=== PATIENT | female | born 1990 | race Caucasian/White ===

== ENCOUNTER 2022-01-15 15:42 | Outpatient (CLI) | payer SELFPAY | END 2022-01-15 15:43 | disposition EMS.NT | LOC: EMS 15:42 | DX: R42 Dizziness and giddiness (principal); R06.02 Shortness of breath ==

== ENCOUNTER 2022-04-21 17:50 | Outpatient (CLI) | payer OTHER, BC ==
--- NOTE | 2022-04-22 17:07 | XRAY Report ---
PROCEDURE: Foot 2 View RT INDICATIONS: CRUSHING INJURY OF RIGHT FOOT,INITIAL ENCOUNTER TECHNIQUE: 2 views of the foot were acquired. COMPARISON: None FINDINGS: Bones: No fractures or dislocations. No suspicious bony lesions. Soft tissues: No tibiotalar joint effusion. Achilles tendon appears normal. IMPRESSION: No visualized acute fracture or dislocation. However, occult injury cannot be excluded. Recommend fareed rt interval imaging follow-up in 7-10 days as clinically indicated for additional evaluation. Reviewed by: Rajni Albert MD on 04/22/2022 5:06 PM PST Approved by: Rajni Albert MD on 04/22/2022 5:06 PM PST Station ID: [id number]
== END 2022-04-21 17:51 | disposition home or self-care (01) ==
LOC: DI 17:50
PROVIDERS: ATTEND Nurse Practitioner
DX: S97.81XA Crushing injury of right foot, initial encounter (principal)

== ENCOUNTER 2022-08-26 16:45 | Outpatient (CLI) | payer OTHER ==
--- NOTE | 2022-08-26 12:35 | XRAY Report ---
PROCEDURE: Foot 3 View RT INDICATIONS: RIGHT GREAT TO FRACTURE/FOOT PAIN TECHNIQUE: 3 views of the foot were acquired. COMPARISON: 05/01/2022 FINDINGS: Bones: Previous distal tuft fracture has healed. No fractures or dislocations. No suspicious bony l esions. Soft tissues: No suspicious soft tissue calcifications or masses. IMPRESSION: Interval healing of distal tuft fracture. Reviewed by: Al Paz MD on 08/26/2022 12:34 PM PDT Approved by: Al Paz MD on 08/26/2022 12:34 PM PDT Station ID: [id number]
== END 2022-08-26 16:46 | disposition home or self-care (01) ==
LOC: DI.WOS 16:45
PROVIDERS: ATTEND Physician Assistant Surgical
DX: S92.424D Nondisplaced fracture of distal phalanx of right great toe, subsequent encounter for fracture with routine healing (principal)

== ENCOUNTER 2024-07-15 11:58 | Observation (INO) ==
[2024-07-15 12:32] LABS: BASOPHILS # (AUTO) 0.1 10^3/uL (0.0-0.1); BASOPHILS % (AUTO) 0.7 %; EOSINOPHILS # (AUTO) 0.4 10^3/uL (0.0-0.7); EOSINOPHILS % (AUTO) 5.3 %; HGB - HEMOGLOBIN 13.3 g/dL (12.0-16.0); LYMPHOCYTES % (AUTO) 28.8 %; MEAN CORPUSCULAR HEMOGLOBIN 30.9 pg (27.0-31.0); MEAN CORPUSCULAR HGB CONC 33.3 g/dL (32.0-36.0); MEAN CORPUSCULAR VOLUME 92.8 fL (81.0-99.0); MEAN PLATELET VOLUME 9.1 fL (7.9-10.8); MONOCYTES # (AUTO) 0.5 10^3/uL (0.0-1.0); MONOCYTES % (AUTO) 6.8 %; NEUTROPHILS % (AUTO) 58.3 %; PLT - PLATELET COUNT 326 10^3/uL (130-450); RED BLOOD COUNT 4.31 10^6/uL (4.20-5.40); RED CELL DISTRIBUTION WIDTH 11.6 % (12.0-15.0); WHITE BLOOD COUNT 6.8 x10^3/uL (4.8-10.8)
[2024-07-15 12:46] LABS: ALBUMIN 4.8 g/dL (3.2-5.5); ALBUMIN/GLOBULIN RATIO 1.7 (1.0-2.2); BILIRUBIN,TOTAL 0.6 mg/dL (0.2-1.0); CALCIUM 9.5 mg/dL (8.5-10.3); CREATININE 0.8 mg/dL (0.6-1.3); POTASSIUM 4.4 mmol/L (3.5-4.5); TOTAL PROTEIN 7.6 g/dL (6.4-8.9)
--- OUTSIDE RECORDS SUMMARY | 2024-07-15 12:56 | EXTERNAL MEDICAL SUMMARY RPT | Continuity of Care Document ---
Author Organization [place] Address [address] [id number] Phone Results/Labs test date facility value unit notes Result panel 1 NUCLEATED RED BLOOD CELLS AUTO 2024-07-15 12:26 [facility] 0.0 /100wbc (missing) NRBC ABSOLUTE COUNT (AUTO) 2024-07-15 12: [facility] 0.00 x10 3/ul (missing) BASOPHILS # (AUTO) 2024-07-15 12:26 [facility] 0.1 10 3/ul (missing) EOSINOPHILS # (AUTO) 2024-07-15 12:26 [facility] 0.4 10 3/ul (missing) MONOCYTES # (AUTO) 2024-07-15 12:26 [facility] 0.5 10 3/ul (missing) BILIRUBIN,TOTAL 2024-07-15 12: [facility] 0.6 mg /dl As of October 2022 testing method has changed, this may include reference ranges. CREATININE 2024-07-15 12: [facility] 0.8 mg/dl As of October 2022 testing method has changed, this may include reference ranges. ALBUMIN/GLOBULIN RATIO 2024-07-15 12: [facility] 1.7 (missing) (missing) CHLORIDE 2024-07-15 12:26 [facility] 104 mmol/l As of October 2022 testing method has changed, this may include reference ranges. ALT ALANINE AMINOTRANSFERASE 2024-07-15 12: [facility] 11 iu/l As of October 2022 testing method has changed, this may include reference ranges. BUN - BLOOD UREA NITROGEN 2024-07-15 12:26 [facility] 11 mg/dl As of Oct testing method has changed, this may include reference ranges. RED CELL DISTRIBUTION WIDTH 2024-07-15 12: [facility] 11.6 % (missing) HGB - HEMOGLOBIN 2024-07-15 12:26 [facility] 13.3 g /dl (missing) SODIUM 2024-07-15 12:26 [facility] 137 mmol/l As of October 2022 testing method has changed, this may include reference ranges. AST ASPARTATE AMINOTRANSFERASE 2024-07-15 12: [facility] 16 iu/l As of October 2022 testing method has changed, this may include reference ranges. LYMPHOCYTES # (AUTO) 2024-07-15 12:26 [facility] 2.0 10 3/ul (missing) GLOBULIN 2024-07-15 12:26 [facility] 2.8 g/dl (missing) CARBON DIOXIDE - CO2 2024-07-15 12: [facility] 28 mmol/l As of October 2022 testing method has changed, this may include reference ranges. LIPASE 2024-07-15 12: [facility] 28 u/l As of October 2022 testing method has changed, this may include reference ranges. MEAN CORPUSCULAR HEMOGLOBIN 2024-07-15 12: [facility] 30.9 pg (missing) PLT - PLATELET COUNT 2024-07-15 12: [facility] 326 10 3/ul (missing) MEAN CORPUSCULAR HGB CONC 2024-07-15 12: [facility] 33.3 g/dl (missing) NEUTROPHILS # (AUTO) 2024-07-15 12: [facility] 4.0 10 3/ul (missing) RED BLOOD COUNT 2024-07-15 12: [facility] 4.31 10 6/ul (missing) POTASSIUM 2024-07-15 12: [facility] 4.4 mmol/l As of October 2022 testing method has changed, this may include reference ranges. ALBUMIN 2024-07-15 12: [facility] 4.8 g/dl As of October 2022 testing method has changed, this may include reference ranges. HCT - HEMATOCRIT 2024-07-15 12: [facility] 40.0 % (missing) ALKALINE PHOSPHATASE 2024-07-15 12: [facility] 43 iu/l As of October 2022 testing method has changed, this may include reference ranges. ANION GAP 2024-07-15 12:26 [facility] 5.0 (missing ) (missing) WHITE BLOOD COUNT 2024-07-15 12: [facility] 6.8 x10 3/ul (missing) TOTAL PROTEIN 2024-07-15 12:26 [facility] 7.6 g/dl As of October 2022 testing method has changed, this may include reference ranges. GFR - MDRD 2024-07-15 12:26 [facility] 83 (thelma herrera) Social History date description facility
[2024-07-15] MEDS: ONDANSETRON 4 MG/2 ML VIAL IVP STA (16:56)
[2024-07-15] MEDS: SODIUM CHLORIDE 0.9% 1,000 ML IV STA (16:57)
[2024-07-15] MEDS: MORPHINE 2 MG/ML CARPUJECT IVP STA (16:57)
--- NOTE | 2024-07-15 17:01 | ED Physician Documentation ---
PD HPI ABD PAIN Stated complaint Stated Complaint: ABD PX Chief complaint Chief Complaint: Abd Pain History obtained from History obtained from: Patient Additional information Additional information: Patient is a 33-year-old female who started with periumbilical abdominal pain today which is now moved to the right lower quadrant. She states that she last ate around 7 AM. Has not had similar symptoms previously. Nothing seems to make it better or worse. Has not had any fevers or chills. No vaginal bleeding or discharge. No diarrhea, constipation, urinary symptoms. Review of Systems Constitutional Denies: Fever or Chills Respiratory Denies: Cough Gastrointestinal Denies: Nausea or Vomiting Genitourinary Denies: Painful urination Meds/Allgy Allergies Allergies Allergy/AdvReac Type Severity Reaction Status Date / Time No Known Allergies Allergy Unknown Verified 07/15/24 16:40 PFSH Active Problems All Active Problems (Updated 07/15/24 @ 19:21 by Jeffrey Moralez MD) Appendicitis (Acute) Medical History Medical History (Updated 07/15/24 @ 19:21 by Jeffrey Moralez MD) No pertinent past medical history Surgical History Surgical History (Updated 07/15/24 @ 17:28 by Aubrie Ford RN) No pertinent past surgical history Social History Social History Relationship: Do you feel safe in your home environment?: Yes Suffered physical, verbal, emotional, or financial abuse?: No Exam Exam Vital Signs: Vital Signs x48h Temp Pulse Resp BP Pulse Ox 07/15/24 19:00 37 C 106 H 16 111/73 98 07/15/24 17:08 37 C 115 H 16 126/70 97 07/15/24 12:02 36.5 C 105 H 18 120/83 100 Constitutional normal general appearance and no apparent distress HENMT oropharynx normal moist mucous membranes Eyes PERRL Neck/C-Spine visual inspection normal Respiratory breath sounds equal bilaterally, normal respiratory effort and clear to ausculta tion bilaterally Cardiovascular normal heart rate noted and regular rhythm noted Gastrointestinal abdomen normal to inspection, abdomen soft to palpation and nondistended Tender to palpation right lower quadrant at McBurney's point. Positive Rovsing's and obturator signs. Positive heeltap Genitourinary no CVA tenderness Extremities no edema Neurology speech normal Psychiatry mental status grossly normal and oriented x3 Skin skin color normal Results Vitals Vitals: Vital Signs - 24 hr 07/15/24 12:02 07/15/24 16:57 07/15/24 17:08 Temperature 36.5 C 37 C Temperature Source Temporal Artery Scan Oral Pulse Rate 105 H 115 H Respiratory Rate 18 16 Blood Pressure 120/83 126/70 O2 Saturation 100 97 O2 Source Room air Room air Pain Intensity 6 6 3 07/15/24 19:00 Temperature 37 C Temperature Source Oral Pulse Rate 106 H Respiratory Rate 16 Blood Pressure 111/73 O2 Saturation 98 O2 Source Room air Pain Intensity Oxygen O2 Source Room air Labs Labs: Laboratory Tests 07/15/24 07/15/24 12:26 17:52 WBC 6.8 RBC 4.31 Hgb 13.3 Hct 40.0 MCV 92.8 MCH 30.9 MCHC 33.3 RDW 11.6 L Plt Count 326 MPV 9.1 Neut # (Auto) 4.0 Lymph # (Auto) 2.0 [place] # (Auto) 0.5 Eos # (Auto) 0.4 Baso # (Auto) 0.1 Absolute Nucleated RBC 0.00 Nucleated RBC % 0.0 Sodium 137 Potassium 4.4 Chloride 104 Carbon Dioxide 28 Anion Gap 5.0 L BUN 11 Creatinine 0.8 Estimated GFR (MDRD) 83 L Glucose 91 Calcium 9.5 Total Bilirubin 0.6 AST 16 ALT 11 Alkaline Phosphatase 43 Total Protein 7.6 Albumin 4.8 Globulin 2.8 Albumin/Globulin Ratio 1.7 Lipase 28 Serum HCG, Qual NEGATIVE Urine Color LIGHT YELLOW Urine Clarity CLEAR Urine pH 7.5 Ur Specific [place] 1.010 Urine Protein NEGATIVE Urine Glucose (UA) NEGATIVE Urine Ketones 15 H Urine Occult Blood NEGATIVE Urine Nitrite NEGATIVE Urine Bilirubin NEGATIVE Urine Urobilinogen 0.2 (NORMAL) Ur Leukocyte Esterase TRACE H Urine RBC None Seen Urine WBC 0-3 Ur Squamous Epith Cells MOD Squamous H Urine Bacteria Rare Ur Microscopic Review INDICATED Urine Culture Comments NOT INDICATED Urine HCG, Qual NEGATIVE Rads (name of study) CT abdomen pelvis: Relevant Findings:: EMP independent interpretation of test PD Medical Decision Making ED course Complexity details: reviewed results, considered differential and d/w patient ED course: 33-year-old female with periumbilical pain today that is now settled in the right lower quadrant. Tenderness at McBurney's point. No significant lab abnormalities. hCG is negative. There however she is having the CT scan read by radiology, given her exam consistent with appendicitis and my interpretation of what appears to be a dilated fluid-filled appendix, approximately 11 mm in the right lower quadrant with some mild fluid around the tip of the cecum, this would be consistent with acute appendicitis. The fluid does not appear to be connected in any way to the ovary, do not suspect ovarian rupture or ovarian origin of that fluid. Therefore I contacted Dr. Alexander, general surgery on- call who will come and evaluate the patient, will plan on him taking her to the OR for acute appendicitis. Zosyn started. Patient NPO. IV fluids given. Pain well-controlled. This document was made in part using voice recognition software. While efforts are made to proofread this document, sound alike and grammatical errors may occur. Discharge Plan Discharge Patient Disposition: ED Transfer to [facility] Condition: Stable Clinical Impression: Appendicitis Qualifiers: Appendicitis type: acute appendicitis Acute appendicitis type: unspecified acute appendicitis type Qualified Code(s): K35.80 - Unspecified acute appendicitis Print Language: Greek Stand Alone Forms: PCP List
[2024-07-15 17:13] LABS: HCG,QUALITATIVE BLOOD NEGATIVE
[2024-07-15] MEDS ORDERED: iohexoL-300 100 ML VIAL ONE (17:23)
[2024-07-15] MEDS: iohexoL-300 100 ML VIAL IVP ONE (17:49)
[2024-07-15 18:00] LABS: BILIRUBIN,URINE NEGATIVE (NEGATIVE); GLUCOSE, URINE (UA) NEGATIVE (NEGATIVE); KETONES,URINE (UA) 15 mg/dL (NEGATIVE); LEUKOCYTE ESTERASE, URINE TRACE (NEGATIVE); NITRITE,URINE NEGATIVE (NEGATIVE); OCCULT BLOOD,URINE NEGATIVE (NEGATIVE); PH,URINE 7.5 PH (5.0-7.5); PROTEIN,URINE NEGATIVE (NEGATIVE); UROBILINOGEN,URINE 0.2 (NORMAL) E.U./dL (NORMAL)
[2024-07-15 18:14] LABS: CLARITY,URINE CLEAR (CLEAR); HCG UR QUAL NEGATIVE
[2024-07-15 18:38] LABS: BACTERIA,URINE Rare /HPF (None Seen); RBC,URINE None Seen /HPF (0-5); SQUAMOUS EPITHELIAL CELL,UR MOD Squamous (<= Few); WBC,URINE 0-3 /HPF (0-5)
[2024-07-15] MEDS: PIPERACILLIN/TAZOBACTAM 3.375 GM in SODIUM CHLORIDE 0.9% MINIBAG 100 ML IV STA (19:42)
--- NOTE | 2024-07-15 19:51 | HISTORY & PHYSICAL EXAMINATION ---
Chief Complaint Chief Complaint Chief Complaint: Abdominal pain History of Present Illness Admitted From Admitted From:: ED History Obtained From History obtained from: Patient Exam Limitations: None History of Present Illness HPI Comment/Other: 33 female with sudden onset of mid-hypogastric pain at 1100 today. The pain is sharp and constant. She had transient nausea but no vomiting. She came to the ED at noon and her pain seemed to move a bit to the right. She tells me it hurts to move. She also tells me that she is hungry. She denies constipation and has never had similar abdominal pain. She denies fevers or chills. She denies prior abdominal surgery. LMP about 3 weeks ago. Meds/Allgy Allergies Allergies Allergy/AdvReac Type Severity Reaction Status Date / Time No Known Allergies Allergy Unknown Verified 07/15/24 16:40 PFSH Active Problems All Active Problems (Updated 07/15/24 @ 19:21 by Jeffrey Moralez MD) Appendicitis (Acute) Medical History Medical History (Updated 07/15/24 @ 19:21 by Jeffrey Moralez MD) No pertinent past medical history Surgical History Surgical History (Updated 07/15/24 @ 17:28 by Aubrie Ford RN) No pertinent past surgical history Family History Family History (Updated 07/15/24 @ 19:48 by Ciaran Alexander MD) Other CAD (coronary artery disease) CVA (cerebral vascular accident) Diabetes Social History Social History Relationship: Do you feel safe in your home environment?: Yes Suffered physical, verbal, emotional, or financial abuse?: No Review of Systems Status of ROS: 10 or more systems reviewed and unremarkable except as noted in history and below Prior Level of Functionality: Independent Exam Exam Vital Signs: Vital Signs x48h Temp Pulse Resp BP Pulse Ox 07/15/24 19:00 37 C 106 H 16 111/73 98 07/15/24 17:08 37 C 115 H 16 126/70 97 Constitutional normal general appearance, no apparent distress and average body habitus HENMT normocephalic, head/scalp atraumatic and hearing grossly normal bilaterally Eyes PERRL, EOMs intact bilaterally, conjunctivae normal and no scleral icterus Neck/C-Spine visual inspection normal and trachea midline Lymph no lymphadenopathy noted Respiratory breath sounds equal bilaterally, normal respiratory effort and clear to auscultation bilaterally Cardiovascular normal heart rate noted, regular rhythm noted and no murmur Gastrointestinal abdomen normal to inspection, abdomen soft to palpation, nontender to palpation, nontender to percussion, nondistended, normoactive bowel sounds and no masses Genitourinary no CVA tenderness Back/Pelvis spine normal to inspection Extremities normal to inspection Neurology no sensory deficits noted Psychiatry mental status grossly normal, oriented x3, thought process normal, cooperative and affect normal Skin skin color normal Conclusion/Plan Problem List (1) Appendicitis: Qualifiers: Acute appendicitis type: unspecified acute appendicitis type A ppendicitis type: acute appendicitis Qualified Code(s): K35.80 - Unspecified acute appendicitis Plan 1) NPO 2) Laparoscopic appendectomy, possible open appendectomy under GETA. The patient will be admitted to observation with the intent to support her overnight with plans for discharge tomorrow morning. Consent: Sharon has been counseled for the procedure (Laparoscopic appendectomy, possible open appendectomy under GETA), it's indications, risks, benefits and expected outcome as well as alternative therapies. We specifically discussed risks associated with anesthesia, bleeding, infection, injury to surrounding structures which may require additional surgery, and the possible need for conversion to an open procedure. We also discussed the possible need for a blood transfusion with its risks and benefits. Sharon understands, agrees, and consents to the proposed operative strategy and requests that we proceed with the procedure as outlined in our discussion. Ciaran Alexander MD, [facility] General Surgery Service Lab Results Lab results reviewed: Yes 07/15/24 12:26 07/15/24 12:26 Diagnostic Imaging Results Diagnostic Imaging Results: positive See rad report Diagnostic Imaging Results Comments: CT abd/pelvis - my read -> Large stool burden right colon. Air within what appears to be an appendix in the RLQ. Official reading - dilated tubular structure in RLQ c/w acute appendicitis
--- NOTE | 2024-07-15 19:57 | CT Report ---
PROCEDURE: CT Abdomen/Pelvis W INDICATIONS: RLQ pain CONTRAST: omni 300, 100 TECHNIQUE: After the administration of intravenous contrast, a CT scan of the abdomen and pelvis was performed. Images were recorded and evaluated at appropriate window settings. Reformats: coronal and sagittal. F or radiation dose reduction, the following was used: automated exposure control, adjustment of mA and /or kV according to patient size. COMPARISON: None. FINDINGS: Image quality: Diagnostic. Lower chest: Unremarkable. Liver: No solid mass. Gallbladder: No radiopaque stones or wall thickening. Biliary tree: No intrahepatic or extrahepatic dilation, accounting for age. Spleen: No splenomegaly. Pancreas: No pancreatic ductal dilation. Adrenals: No adrenal nodule. Kidneys and ureters: No hydronephrosis. No renal cystic lesion which requires follow up. No solid mas s. Stomach, bowel and peritoneum: No gastric or small bowel dilation. No abnormal wall thickening. No pa thologic free fluid. There appears to be dilated fluid-filled tubular structure within the right lowe r quadrant with wall thickening measuring approximately 1.2 cm (series 2 image 97). There is small ad jacent free fluid within the right lower quadrant. Lymph nodes: No central or retroperitoneal adenopathy. Vessels: No infrarenal aortic aneurysm. Patent portal vein. PELVIS Reproductive organs: Intrauterine device in place. Bladder: No abnormal wall thickening. Pelvic lymph nodes: No pelvic adenopathy by size criteria. Small free fluid within the pelvis. Bones: No aggressive osseous abnormality. Other: No significant ventral or inguinal hernia. IMPRESSION: Dilated tubular structure within the right lower quadrant measuring 12 mm with wall thickening and sm all adjacent free fluid, concerning for acute appendicitis. Reviewed by: Stephane Chun MD on 07/15/2024 7:56 PM PDT Approved by: Stephane Chun MD on 07/15/2024 7:56 PM PDT Station ID: [id number]
--- NOTE | 2024-07-15 20:00 | HISTORY & PHYSICAL EXAMINATION ---
History of Present Illness History of Present Illness HPI Comment/Other: 33 female with sudden onset of mid-hypogastric pain at 1100 today. The pain is sharp and constant. She had transient nausea but no vomiting. She came to the ED at noon and her pain seemed to move a bit to the right. She tells me it hurts to move. She also tells me that she is hungry. She denies constipation and has never had similar abdominal pain. She denies fevers or chills. She denies prior abdominal surgery. LMP about 3 weeks ago. Meds/Allgy Allergies Allergies Allergy/AdvReac Type Severity Reaction Status Date / Time No Known Allergies Allergy Unknown Verified 07/15/24 16:40 PFSH Active Problems All Active Problems (Updated 07/15/24 @ 19:21 by Jeffrey Moralez MD) Appendicitis (Acute) Medical History Medical History (Updated 07/15/24 @ 19:21 by Jeffrey Moralez MD) No pertinent past medical history Surgical History Surgical History (Updated 07/15/24 @ 17:28 by Aubrie Ford RN) No pertinent past surgical history Family History Family History (Updated 07/15/24 @ 19:48 by Ciaran Alexander MD) Other CAD (coronary artery disease) CVA (cerebral vascular accident) Diabetes Social History Social History Relationship: Do you feel safe in your home environment?: Yes Suffered physical, verbal, emotional, or financial abuse?: No Review of Systems Status of ROS: 10 or more systems reviewed and unremarkable except as noted in history and below Exam Exam Vital Signs: Vital Signs x48h Temp Pulse Resp BP Pulse Ox 07/15/24 19:00 37 C 106 H 16 111/73 98 07/15/24 17:08 37 C 115 H 16 126/70 97 07/15/24 12:02 36.5 C 105 H 18 120/83 100 Constitutional normal general appearance, no apparent distress and average body habitus HENMT normocephalic, head/scalp atraumatic and hearing grossly normal bilaterally Eyes PERRL, EOMs intact bilaterally, conjunctivae normal and no scleral icterus Neck/C-Spine visual inspection normal and trachea midline Lymph no lymphadenopathy noted Respiratory breath sounds equal bilaterally, normal respiratory effort and clear to auscultation bilaterally Cardiovascular normal heart rate noted, regular rhythm noted and no murmur Gastrointestinal abdomen normal to inspection, abdomen soft to palpation, nontender to palpation, nontender to percussion, nondistended, normoactive bowel sounds and no masses Genitourinary no CVA tenderness Back/Pelvis spine normal to inspection Extremities normal to inspection Neurology no sensory deficits noted Psychiatry mental status grossly normal, oriented x3, thought process normal, cooperative and affect normal Skin skin color normal Conclusion/Plan Lab Results Lab results reviewed: Yes 07/15/24 12:26 07/15/24 12:26
[2024-07-15] MEDS: LACTATED RINGERS 1,000 ML IV SCH (22:01)
[2024-07-15] MEDS ORDERED: BUPIVACAINE 0.5% PF 10 ML VIAL ONE (22:44)
[2024-07-15] MEDS ORDERED: LIDOCAINE 1%-EPI 1:100000 20 ML MDV ONE (22:45)
[2024-07-15] MEDS ORDERED: PROPOFOL 200 MG/20 ML VIAL IVP ONE (23:21)
[2024-07-15] MEDS ORDERED: fentaNYL 100 MCG/2 ML VIAL ONE (23:21)
[2024-07-15] MEDS ORDERED: MIDAZOLAM 2 MG/2 ML VIAL ONE (23:21)
[2024-07-15] MEDS ORDERED: ROCURONIUM 50 MG/5 ML VIAL ONE (23:22)
[2024-07-16] MEDS ORDERED: DEXAMETHASONE 4 MG/ML VIAL ONE (00:04)
[2024-07-16] MEDS ORDERED: ONDANSETRON 4 MG/2 ML VIAL ONE ×3 (00:04→01:01)
[2024-07-16] MEDS ORDERED: METOCLOPRAMIDE 10 MG/2 ML VIAL IVP PRN (00:19)
[2024-07-16] MEDS ORDERED: MORPHINE 2 MG/ML CARPUJECT IVP PRN (00:19)
[2024-07-16] MEDS ORDERED: ATROPINE ABBOJECT 1 MG/10 ML SYRINGE IVP PRN (00:19)
[2024-07-16] MEDS ORDERED: fentaNYL 100 MCG/2 ML VIAL IVP PRN (00:19)
[2024-07-16] MEDS ORDERED: ePHEDrine 50 MG/ML VIAL IVP PRN (00:19)
[2024-07-16] MEDS ORDERED: NALOXONE 0.4 MG/ML VIAL IVP PRN (00:19)
[2024-07-16] MEDS ORDERED: SUGAMMADEX 200 MG/2 ML VIAL IVP ONE (00:21)
[2024-07-16] MEDS ORDERED: KETOROLAC 30 MG/ML VIAL ONE (00:34)
[2024-07-16] MEDS ORDERED: fentaNYL 100 MCG/2 ML VIAL ONE (00:43)
[2024-07-16] MEDS ORDERED: ACETAMINOPHEN 325 MG TABLET PO SCH (01:00)
[2024-07-16] MEDS: ONDANSETRON 4 MG/2 ML VIAL IVP PRN (01:00)
[2024-07-16] MEDS ORDERED: LACTATED RINGERS 1,000 ML IV SCH (01:00)
[2024-07-16] MEDS ORDERED: HYDROmorphone 0.5 MG/0.5 ML SYRINGE ONE (01:06)
[2024-07-16] MEDS: HYDROmorphone 0.5 MG/0.5 ML SYRINGE IVP PRN (01:08)
[2024-07-16] MEDS ORDERED: ACETAMINOPHEN 325 MG TABLET PO PRN (01:13)
--- NOTE | 2024-07-16 01:15 | ANESTHESIA PROCEDURE NOTE ---
Pre-Anesthesia VS, & Labs Diagnosis Surgical Diagnosis:: appendicitis Procedure Procedure: lap appy Vitals Vital Signs: Temp Pulse Resp BP Pulse Ox 36.9 C 114 H 14 109/69 100 07/16/24 00:55 07/16/24 01:00 07/16/24 01:00 07/16/24 01:00 07/16/24 01:00 Height (in): 5 ft 6 in Weight (kg): 64 kg Body Mass Index: 22.7 BMI Classification: Normal NPO NPO: >8 hours Is Patient ?: No (hcg neg today) Lab Results Current Lab Results: Laboratory Tests 07/15/24 12:26: WBC 6.8, RBC 4.31, Hgb 13.3, Hct 40.0, MCV 92.8, MCH 30.9, MCHC 33.3, RDW 11.6 L, Plt Count 326, MPV 9.1, Neut # (Auto) 4.0, Lymph # (Auto) 2.0, [place] # (Auto) 0.5, Eos # (Auto) 0.4, Baso # (Auto) 0.1, Absolute Nucleated RBC 0.00, Nucleated RBC % 0.0, Sodium 137, Potassium 4.4, Chloride 104, Carbon Dioxide 28, Anion Gap 5.0 L, BUN 11, Creatinine 0.8, Estimated GFR (MDRD) 83 L, Glucose 91, Calcium 9.5, Total Bilirubin 0.6, AST 16, ALT 11, Alkaline Phosphatase 43, Total Protein 7.6, Albumin 4.8, Globulin 2.8, Albumin/Globulin Ratio 1.7, Lipase 28, Serum HCG, Qual NEGATIVE Lab results reviewed: Yes 07/15/24 12:26 07/15/24 12:26 Meds/Allgy Allergies Allergies Allergy/AdvReac Type Severity Reaction Status Date / Time No Known Allergies Allergy Unknown Verified 07/15/24 16:40 PFSH Active Problems All Active Problems (Updated 07/16/24 @ 01:03 by Ciaran Alexander MD) Kim (Acute) Abdominal pain (Acute) Appendicitis (Acute) Medical History Medical History (Updated 07/16/24 @ 01:03 by Ciaran Alexander MD) No pertinent past medical history Surgical History Surgical History (Updated 07/15/24 @ 17:28 by Aubrie Ford RN) No pertinent past surgical history Family History Family History (Updated 07/15/24 @ 19:48 by Ciaran Alexander MD) Other CAD (coronary artery disease) CVA (cerebral vascular accident) Diabetes Social History Social History Smoking Status: Never smoker Relationship: Do you feel safe in your home environment?: Yes Suffered physical, verbal, emotional, or financial abuse?: No Anesthesia Exam (Expanded) Exam General: Alert and Mild distress Dental: WNL Mouth Openin Fingerbreadth Neck Mobility: Normal Mallampati classification: II Thyromental Distance: 4-6 cm Exam Exam Vital Signs: Vital Signs x48h Temp Pulse Resp BP Pulse Ox 07/16/24 01:00 114 H 14 109/69 100 07/16/24 00:55 36.9 C 115 H 15 109/60 100 07/15/24 23:00 37 C 92 16 113/63 96 07/15/24 21:00 100 17 117/71 99 07/15/24 19:00 37 C 106 H 16 111/73 98 Plan Plan Anesthesia Type: General Consent for Procedure(s) Verified and Reviewed: Yes Code Status: Attempt Resuscitation ASA Classification ASA classification: 1-Healthy patient Is this case an emergency?: Yes
--- NOTE | 2024-07-16 01:15 | OPERATIVE REPORT ---
Operative Report General Procedure Data: Operation Date: 07/15/24 23:15 Proposed Procedures p Laparoscopic Appendectomy(Not Applicable) - Ciaran Alexander MD Actual Procedures p Laparoscopic Appendectomy(Not Applicable) - Ciaran Alexander MD Anesthesia Type General Case Staff Anesthesia Provider: Shen Jung Case Times Procedure Start: 07/15/24 23:56 Procedure End: 07/16/24 00:42 Time out: 07/15/24 23:55 Other Other Information/Narrative: PROCEDURE DATE: 07/15/2024 PREOPERATIVE DIAGNOSIS: Sharon is a 33 year old female who has clinical and CT findings consistent with acute appendicitis. Sharon is being taken to the operating room for laparoscopic appendectomy, possible open appendectomy. POSTOPERATIVE DIAGNOSIS: Mittleschmertz (hemoperitoneum due to ruptured ovarian follicle) NAME OF PROCEDURE: Laparoscopic appendectomy, Abdominal washout SURGEON: Ciaran Alexander MD, FACS TELEVISION NEWS PHOTOGRAPHER: [employer] ANESTHESIA: General endotracheal. ESTIMATED BLOOD LOSS: 5 mL. DRAINS: None SPECIMEN: Appendix COMPLICATIONS None FINDINGS: The appendix was normal; There was a small amount of blood above the liver and in the pelvis. A uterine fibroid was present. The right fallopian tube was engorged and inflamed. The right ovary was normal. The left fallopian tube was normal. There was evidence of a blood clot over the inferior surface of the left ovary which was the source of the hemoperitoneum. DESCRIPTION OF OPERATION: After consent for the procedure was obtained, the patient was brought to the operating room where in the supine position, general endotracheal anesthesia was administered. A surgical time-out was performed, indicating the patient and the procedure to be performed. The abdomen was prepped with alcohol-free chloroprep and draped in a sterile fashion. The subcutaneous tissue of each of the planned port sites was infiltrated with 1% Lidocaine with epinephrine in a 50/50 mix with 1/4 % Marcaine mixture. Pneumoperitoneum was achieved through a subumbilical incision using a Mary cannula and an open technique. Under direct vision, a 5 mm muscle splitting, non-cutting port was placed in the right lower quadrant and an 12 mm muscle splitting, non-cutting port was placed in the left lower quadrant. Inspection revealed the above noted findings. The appendix was gently grasped with a ratcheted grasper and retracted superiorly and anteriorly. I then transected the mesoappendix with a harmonic scalpel and identified healthy tissue at the base of the appendix. The base of the appendix was stapled and transected flush with the cecum using an Endo-KEITH stapling device using gastrointestinal peri. The appendix was then brought out through the left lower quadrant port site incision using an EndoCatch device. The pelvis was inspected and the above findings noted. There was a minimum amount of blood surrounding the uterus. The pelvis and the RUQ were irrigated with normal saline. The irrigant was aspirated. Reinspection of the right lower quadrant revealed no evidence of bleeding or leakage from the previous dissection site. The right lower quadrant was irrigated with warm sterile saline. The irrigant was aspirated. A search was made for sponges, packs, instruments, and needles. None were found. The sponge, pack, instrument, and needle counts were relayed to me as being correct. The left lower quadrant port site was closed with a 2-0 Vicryl under direct vision using an endo-close device. The pneumoperitoneum then was released. There was no evidence of bleeding from the laparoscopic port sleeve sites upon release of the pneumoperitoneum. The subumbilical incision was closed with 2-0 Vicryl for the linea alba. The skin of each of the port sites was closed with interrupted 4-0 Monocryl in a subcuticular fashion with Steri-Strips to reinforce the epidermis. Dressings were placed. The patient tolerated the procedure well and was brought to the recovery room with stable vital signs.
[2024-07-16] MEDS ORDERED: HYDROmorphone 0.5 MG/0.5 ML SYRINGE IVP PRN (01:55)
[2024-07-16] MEDS ORDERED: SODIUM CHLORIDE FLUSH 0.9% 10 ML SYRINGE IVP PRN (01:55)
--- NOTE | 2024-07-16 02:15 | ANESTHESIA POST OP EVALUATION ---
Anesthesia Post Eval Post Anesthesia Eval Vitals: Last Vital Signs Temp 36.3 C L 07/16/24 01:32 Pulse 86 07/16/24 01:32 Resp 15 07/16/24 01:32 BP 103/66 07/16/24 01:32 Pulse Ox 15 L 07/16/24 01:32 CV Function Including HR & BP: Stable Pain Control: Satisfactory Nausea & Vomiting: Negative Mental Status: Baseline Respiratory Status: Airway Patent Hydration Status: Satisfactory Anesthesia Complications: None
[2024-07-16] MEDS: LACTATED RINGERS 1,000 ML IV SCH (02:16)
[2024-07-16] MEDS: oxyCODONE 5 MG TABLET PO PRN (02:34)
[2024-07-16 05:46] LABS: BASOPHILS % (AUTO) 0.2 %; EOSINOPHILS % (AUTO) 0.1 %; HCT - HEMATOCRIT 36.1 % (37.0-47.0); HGB - HEMOGLOBIN 11.9 g/dL (12.0-16.0); LYMPHOCYTES # (AUTO) 0.6 10^3/uL (1.5-3.5); LYMPHOCYTES % (AUTO) 6.6 %; MEAN PLATELET VOLUME 9.4 fL (7.9-10.8); MONOCYTES # (AUTO) 0.1 10^3/uL (0.0-1.0); MONOCYTES % (AUTO) 1.1 %; NEUTROPHILS # (AUTO) 8.1 10^3/uL (1.5-6.6); NEUTROPHILS % (AUTO) 91.8 %; PLT - PLATELET COUNT 271 10^3/uL (130-450); RED BLOOD COUNT 3.84 10^6/uL (4.20-5.40); RED CELL DISTRIBUTION WIDTH 11.6 % (12.0-15.0); WHITE BLOOD COUNT 8.9 x10^3/uL (4.8-10.8)
[2024-07-16] MEDS: SODIUM CHLORIDE FLUSH 0.9% 10 ML SYRINGE IVP SCH (06:14)
[2024-07-16] MEDS ORDERED: oxyCODONE 5 MG TABLET ONE (06:24)
[2024-07-16] MEDS ORDERED: IBUPROFEN 600 MG TABLET PO ONE (06:27)
[2024-07-16] MEDS: IBUPROFEN 600 MG TABLET PO SCH (06:31)
--- NOTE | 2024-07-16 07:51 | PROVIDER PROGRESS NOTE ---
Progress Note Progress Note Progress Note: General Surgery Progress Note Hospital Day # 1 - Hemoperitoneum due to Mittleschmertz POD # 1, Diagnostic laparoscopy, appendectomy Code Status: Full ASSESSMENT: 1) Clinically improved PLAN: 1) General diet for breakfast, then discharge to home; FU 10-14 days <><><><><> PERTINENT INTERVAL ISSUES: None S: Feels much better; Port site pain a little worse than she expected but well controlled with oral medication OBJECTIVE: I/O: [birth year] VS: BP 126/74; P 76; RR 16; T 36.8 EXAMINATION: MENTAL STATUS: AAO; Comfortable EYES: Pupils equal, round and reactive to light, sclera anicteric, EARS, NOSE, MOUTH, THROAT: Normal hearing, Oral mucous membranes moist and without lesions; NECK: No crepitus, lymphadenopathy, or thyromegaly LUNGS: Clear to auscultation without wheezing; No use of accessory muscles to breathe CARDIOVASCULAR: Heart-NSR without murmurs; ABD: Soft, non-tender, Port sites clean and dry; + BS EXTREMITIES: No clubbing, cyanosis, infections SKIN: Anicteric; No rashes, lesions, ulcerations LABS: H&H 11.9/36.1; WBC 8.9; PLT 271K; CULTURES: N/A IMAGING: None today ANTIMICROBIALS: Prophylactic completed PAIN CONTROL: Dilaudid IV prn, Oxycodone PO prn, Ketorolac IV, Acetaminophen VTEP: Chemical: None Mechanical: JOSE Alexander MD, FACS General Surgery Service
[2024-07-16 08:05] VITALS: BP 131/71; TEMP 97.9; O2SAT 97
== END 2024-07-16 09:50 | disposition home or self-care (01) ==
LOC: ED 11:58 → SDS 22:14 → MS2 22:14 → SDS 23:33
PROVIDERS: ADMIT Surgery; ATTEND Surgery